=== PATIENT | female | born 1990 | race Asian ===

== ENCOUNTER 2019-06-21 07:41 | Emergency (ER) | payer BC ==
[~2019-06-21] VITALS: Ht 160 cm; Wt 54.4 kg
--- NOTE | 2019-06-21 07:44 | NUR ---
Patient to ER bed 03 to gown for evaluation. Side rails up.
[2019-06-21 07:45] VITALS: BP_SYST 113
--- NOTE | 2019-06-21 07:46 | NUR ---
Pt brought by self, A&Ox4, pt presents to ER with anxiety and cramping of extremities, skin pink and warm, cap refill <3, VSS, respirations even and unlabored,no N/V noted, will cont to monitor.
--- NOTE | 2019-06-21 07:50 | NUR ---
ER Dr. Bear at bedside examining patient.
[2019-06-21] MEDS ORDERED: ALPRAZolam 0.25 MG TABLET PO ONE (08:00)
[2019-06-21 08:29] LABS: BASOPHILS # (AUTO) 0.1 K/uL (0.0-0.2); BASOPHILS % (AUTO) 0.5 % (0.0-2.0); EOSINOPHILS # (AUTO) 0.1 K/uL (0.0-0.4); EOSINOPHILS % (AUTO) 0.8 % (0.0-4.0); HEMATOCRIT 40.3 % (36-48); HEMOGLOBIN 13.8 g/dL (12.0-16.0); LYMPHOCYTES # (AUTO) 1.1 K/uL (1.0-5.5); LYMPHOCYTES % (AUTO) 7.1 % (20.5-51.5); MEAN CORPUSCULAR HEMOGLOBIN 30 pg (27-31); MEAN CORPUSCULAR HGB CONC 34 % (32-36); MEAN CORPUSCULAR VOLUME 87 fL (79.0-98.0); MONOCYTES # (AUTO) 1.2 K/uL (0.0-1.0); MONOCYTES % (AUTO) 7.2 % (1.7-9.3); NEUTROPHILS # (AUTO) 13.7 K/uL (1.8-7.7); NEUTROPHILS % (AUTO) 84.4 % (40.0-70.0); PLATELET COUNT (AUTO) 240 K/uL (130-430); RED BLOOD CELL COUNT(AUTO) 4.64 MIL/uL (4.2-6.2); RED CELL DISTRIBUTION WIDTH 12.7 % (9.0-15.0); WHITE BLOOD COUNT (AUTO) 16.2 K/uL (4.8-10.8)
[2019-06-21 08:45] LABS: CALCIUM 8.5 mg/dL (8.4-11.0); CREATININE 0.64 mg/dL (0.55-1.30); POTASSIUM 3.1 mmol/L (3.5-5.1)
[2019-06-21] MEDS ORDERED: ONDANSETRON 4 MG ODT TAB PO ONE ×2 (08:45→11:15)
[2019-06-21 08:46] LABS: PROTHROMBIN TIME 10.3 SECS (9.5-12.5)
[2019-06-21 08:49] LABS: ALBUMIN 4.1 g/dL (3.4-4.8); TOTAL BILIRUBIN 0.7 mg/dL (0.0-1.0)
[2019-06-21] MEDS ORDERED: PANTOPRAZOLE SODIUM 40 MG TAB PO ONE (11:15)
--- NOTE | 2019-06-21 11:39 | NUR ---
Patient given written and verbal discharge instructions and verbalizes understanding. ER MD discussed with patient the results and treatment provided. Patient in stable condition. ID arm band removed. Rx of XANAX, ZOFRAN, PROTONIX given. Patient educated on pain management and to follow up with PMD. Pain Scale 0/10. Opportunity for questions provided and answered. Medication side effect fact sheet provided. PT'S Mom here to take pt home
[2019-06-21 11:40] VITALS: BP_SYST 110
== END 2019-06-21 11:40 | disposition home or self-care (01) ==
LOC: SED 07:41
DX: R10.10 Upper abdominal pain, unspecified (principal); F41.0 Panic disorder [episodic paroxysmal anxiety]; K21.9 Gastro-esophageal reflux disease without esophagitis
CPT/HCPCS: 36415; 76700; 80053; 81002; 81025; 82150; 83690; 84703; 85025; 85610; 85730; 99284; Q0162